=== PATIENT | female | born 1960 | race Hispanic/Latino ===

== ENCOUNTER 2017-03-07 08:21 | Outpatient (CLI) | payer BC ==
--- NOTE | 2017-03-07 09:05 | Mammography Report ---
Screening mammogram: Routine views are compared to prior exams dating back to 2014. Mild fibroglandular deformities are identified related to prior surgeries on the side. No focal mass and no suspicious architectural distortion noted. Several benign-appearing calcifications bilaterally. No interval change is identified compared to prior exams. CAD used. Impressions: Stable breast pattern. Recommendation: Annual mammogram followup. BI-RADS CATEGORY: 2 = Benign ACR BI-RADS MAMMOGRAPHIC CODES: 0 = Needs additional imaging evaluation; 1 = Negative; 2 = Benign; 3 = Probably benign; 4 = Suspicious; 5 = Malignant; 6 = Known biopsy-proven malignancy COMMENT: 1. Dense breast tissue, i.e., adenosis, fibrocystic changes, etc., may obscure an underlying neoplasm. 2. Approximately 10% of cancers are not detected with mammography. 3. A negative mammography report should not delay biopsy if a clinically suspicious mass is present.
== END 2017-03-07 08:22 | disposition home or self-care (01) ==
LOC: SPVWC 08:21
PROVIDERS: ATTEND Obstetrics & Gynecology
DX: Z12.31 Encounter for screening mammogram for malignant neoplasm of breast (principal)
CPT/HCPCS: 77067; G0202

== ENCOUNTER 2020-05-19 11:00 | Outpatient (CLI) | payer BC ==
--- NOTE | 2020-05-19 15:18 | Mammography Report ---
DIGITAL SCREENING MAMMOGRAM WITH CAD, 05/19/2020 INDICATION: Routine screening mammography. TECHNIQUE: Digital bilateral 2D mammography was obtained in the craniocaudal and mediolateral obliq ue projections. This examination was interpreted with the benefit of Computer-Aided Detection analysi s. COMPARISON: 05/14/2019. FINDINGS: Breast Density: The breasts are heterogeneously dense, which may obscure small masses. There is no evidence of dominant mass, suspicious calcifications or architectural distortion in eithe r breast. IMPRESSION: Follow up recommendation: Routine yearly BI-RADS Category 1: Negative. A "normal" or negative report should not discourage follow up or biopsy of a clinically significant f inding. A written summary of these findings will be mailed to the patient. The patient will be entered into a mammography reporting system which will generate a reminder letter for the patient's next appointmen t at the appropriate interval. The [employer] recommends yearly mammograms starting at age 40 and continuing as l [place] as a woman is in good health. Breast MRI is recommended for women with an approximate 20-25% or greater lifetime risk of breast cancer, including women with a strong family history of breast or ova lenora cancer or who have been treated for Hodgkin's disease. Signer Name: Juanjose Coker MD Signed: 05/19/2020 3:14 PM Workstation Name: [email or web address]
== END 2020-05-19 11:01 | disposition home or self-care (01) ==
LOC: SPVWC 11:00
PROVIDERS: ATTEND Obstetrics & Gynecology
DX: Z12.31 Encounter for screening mammogram for malignant neoplasm of breast (principal)
CPT/HCPCS: 77067

== ENCOUNTER 2021-11-12 09:21 | Outpatient (CLI) | payer BC ==
--- NOTE | 2021-11-12 10:49 | Mammography Report ---
BILATERAL DIGITAL DIAGNOSTIC MAMMOGRAM WITH CAD CONVENTIONAL, 11/12/2021 LEFT LIMITED BREAST ULTRASOUND CLINICAL INFORMATION / INDICATION: Patient with palpable abnormality on the left. TECHNIQUE: Digital bilateral mammographic imaging was performed. Limited ultrasound was performed. Th is examination was interpreted with the benefit of Computer-Aided Detection (CAD) analysis. COMPARISON: 05/19/2020, 05/14/2019 FINDINGS: Breast Density: The breasts are heterogeneously dense, which may obscure small masses. MAMMOGRAPHIC FINDINGS: No dominant mass, suspicious calcifications, or architectural distortion in ei ther breast. No focal mammographic abnormality is seen in the area of palpable concern. Postsurgical scars are noted bilaterally. ULTRASOUND FINDINGS: Targeted ultrasound evaluation was performed of the area of interest. No sonog raphic abnormality is seen in the area of palpable concern. No solid or cystic lesions are identified . IMPRESSION: No mammographic or sonographic evidence of malignancy. Follow up recommendation: Routine yearly screening mammogram. Clinical correlation is recommended reg arding the area of palpable concern. A "normal" or negative report should not discourage follow up or biopsy of a clinically significant f inding. BI-RADS Category 2: BENIGN. A written summary of these findings will be mailed to the patient. The patient will be entered into a mammography reporting system which will generate a reminder letter for the patient's next appointmen t at the appropriate interval. According to the [employer], yearly mammograms are recommended starting at age 40 and continuing as long as a woman is in good health. Breast MRI is recommended for women with an ana roximately 20-25% or greater lifetime risk of breast cancer, including women with a strong family his tory of breast or ovarian cancer and women who have been treated for Hodgkin's disease. Signer Name: Christophe Patel MD Signed: 11/12/2021 10:45 AM Workstation Name: [email or web address]
== END 2021-11-12 09:22 | disposition home or self-care (01) ==
LOC: MAMMO 09:21
PROVIDERS: ATTEND Obstetrics & Gynecology
DX: N64.4 Mastodynia (principal)
CPT/HCPCS: 77066